=== PATIENT | male | born 1945 | race Caucasian/White ===

== ENCOUNTER 2016-12-02 07:07 | Outpatient (RCR) | payer MEDICARE ==
[~2016-12-02] VITALS: Ht 170.2 cm; Wt 63.5 kg
[2016-12-02] MEDS ORDERED: Ketorolac 30mg Inj ONE (07:08)
[2016-12-02] MEDS ORDERED: NS 550ML IV ONE (07:08)
[2016-12-02] MEDS ORDERED: Succinylcholine 20mg/ml 10ml vial ONE (07:08)
[2016-12-02] MEDS ORDERED: Methohexital Sodium Syr 100mg/10ml IVP ONE (07:08)
== END 2016-12-29 | disposition home or self-care (01) ==
LOC: ECT 07:07
DX: F33.2 Major depressive disorder, recurrent severe without psychotic features (principal); I25.2 Old myocardial infarction; E11.9 Type 2 diabetes mellitus without complications
CPT/HCPCS: 90870; J0330; J1885; J7040

== ENCOUNTER 2016-12-30 05:10 | Outpatient (RCR) | payer MEDICARE ==
[~2016-12-30] VITALS: Ht 170.2 cm; Wt 63.5 kg
[2016-12-30] MEDS ORDERED: NS 550ML IV ONE (05:11)
[2016-12-30] MEDS ORDERED: Ketorolac 30mg Inj ONE (05:11)
[2016-12-30] MEDS ORDERED: Methohexital Sodium Syr 100mg/10ml IVP ONE (05:11)
[2016-12-30] MEDS ORDERED: Succinylcholine 20mg/ml 10ml vial ONE (05:11)
[2016-12-30] MEDS ORDERED: Atropine Sulfate 0.4mg/ml inj IVP PRN (08:33)
== END 2017-01-26 | disposition home or self-care (01) ==
LOC: ECT 05:10
DX: F33.2 Major depressive disorder, recurrent severe without psychotic features (principal)
CPT/HCPCS: 90870; J0330; J1885; J7040